=== PATIENT | female | born 1980 | race Caucasian/White ===

== ENCOUNTER 2024-06-14 16:15 | Emergency (ER) | payer BC, SELFPAY ==
--- NOTE | 2024-06-14 16:29 | XR_ITS ---
PROCEDURE INFORMATION: Exam: XR Right Tibia and Fibula Exam date and time: 06/14/2024 5:02 PM Age: 43 years old Clinical indication: Injury or trauma; Fall; Blunt trauma; Thigh or upper leg; Right; Additional info: Fall/ pain x 1 week, bruising on lateral side of tibfib TECHNIQUE: Imaging protocol: Radiologic exam of the right tibia and fibula. Views: 2 views. COMPARISON: CR XR KNEE RT 3V 06/14/2024 5:00 PM FINDINGS: Bones/joints: No acute fracture or malalignment. Soft tissues: Proximal leg soft tissue swelling. IMPRESSION: 1. No acute osseous findings. 2. Proximal leg soft tissue swelling.
--- NOTE | 2024-06-14 16:31 | XR_ITS ---
PROCEDURE INFORMATION: Exam: XR Right Knee Exam date and time: 06/14/2024 5:00 PM Age: 43 years old Clinical indication: Injury or trauma; Fall; Blunt trauma; Knee; Right; Additional info: Fall/pain x 1 week TECHNIQUE: Imaging protocol: Radiologic exam of the right knee. Views: 3 views. COMPARISON: No relevant prior studies available. FINDINGS: Bones/joints: No acute fracture or malalignment. No joint effusion. Soft tissues: Normal. IMPRESSION: No acute osseous findings.
[2024-06-14 16:50] VITALS: BP 162/88; PULSE 82; RESP 20; TEMP 36.7; O2SAT 98; BMI 46.5
--- NOTE | 2024-06-14 17:01 | ED_ITS ---
Discharge Plan Disposition Patient Disposition: Home, Self-Care Condition: Good Prescriptions Prescriptions: No Action lamotrigine 150 mg tablet 150 mg PO DAILY Patient Comments: TAKE 1 TABLET BY MOUTH EVERY NIGHT citalopram 40 mg tablet 40 mg PO DAILY Patient Comments: TAKE 1 TABLET BY MOUTH DAILY trazodone 50 mg tablet 50 - 100 mg PO HSP PRN (Reason: Insomnia) Patient Comments: TAKE 1 TO 2 TABLETS BY MOUTH AT NIGHT NEEDED FOR SLEEP prazosin 1 mg capsule 1 - 4 mg PO HS Patient Comments: TAKE 1 TO 4 CAPSULES BY MOUTH EVERY NIGHT. START WITH 1 MG EVERY NIGHT. MAY INCREASE BY 1 MG EVERY 2 ND-3 RD NIGHT. MAX 4 MG sucralfate 1 gram tablet 1 g PO QID Patient Comments: TAKE 1 TABLET BY MOUTH FOUR TIMES DAILY baclofen 10 mg tablet 10 mg PO TID Patient Comments: TAKE 1 TABLET BY MOUTH THREE TIMES DAILY bupropion HCl 75 mg Tablet 75 mg PO BID Rx Instructions: administer 6 hours apart omeprazole 20 mg capsule,delayed release(DR/EC) 20 mg PO DAILY Patient Comments: TAKE 1 CAPSULE BY MOUTH DAILY Referrals Follow up/Referrals: Siena Vo PA [Primary Care Provider] - See instructions Activity Restrictions/Add. Instructions Additional Instructions/Restrictions: Weight bearing as tolerated rest Ice with cold pack for 20 minutes remove may repeat for comfort every hour Elevate with ankle above your heart as much as possible to help reduce swelling and therefore pain Ibuprofen every 6 hours as needed for pain or inflammation. If needs something more you can take Tylenol every 4 hours as needed as long as her primary care has told he was okayed for you to take both. follow -up immediately if new or worsening symptoms or no noticeable improvement over the next 3-5 days. call ortho if no improvement Clinical Impressions Clinical Impression: Contusion Instructions Patient Instructions: DI for Contusion Discharge ED Provider: Lorena ([facility] [place] HPI General Stated complaint: AO 06/08/241999 injury right leg Mode of Arrival: Ambulatory Source of Information: Patient Limitations: No Limitations Time Seen by Provider: 06/14/24 17:01 Description of Symptoms (Recalled from Triage Doc. by RN): PATIENT C/O INJURY TO RIGHT KNEE AND ANGUIANO AREA AFTER FALLING THIS PAST SUNDAY HEENT Symptoms (Recalled from RN notes): No Resp Symptoms (Recalled from RN notes): No Skin Symptoms (Recalled from RN notes): No MS Symptoms (Recalled from RN notes): Yes Functional Status (Recalled from RN notes): WNL History of Present Illness Provider Complaint: 43 yr old female presents for rt knee and leg pain. pt states last sunday she fell on the concrete floor while doing laundry. pt states leg hurts and its hard to stand for long due to pain Related Data Home Medications Medication Instructions Recorded Confirmed baclofen 10 mg tablet 10 mg PO TID 06/14/24 06/14/24 bupropion HCl 75 mg tablet 75 mg PO BID 06/14/24 06/14/24 citalopram 40 mg tablet 40 mg PO DAILY 06/14/24 06/14/24 lamotrigine 150 mg tablet 150 mg PO DAILY 06/14/24 06/14/24 omeprazole 20 mg capsule,delayed 20 mg PO DAILY 06/14/24 06/14/24 release prazosin 1 mg capsule 1 - 4 mg PO HS 06/14/24 06/14/24 sucralfate 1 gram tablet 1 g PO QID 06/14/24 06/14/24 trazodone 50 mg tablet 50 - 100 mg PO HSP PRN Insomnia 06/14/24 06/14/24 Allergies Allergy/AdvReac Type Severity Reaction Status Date / Time No Known Allergies Allergy Verified 06/14/24 16:59 Worker's Comp Is this a Worker's Comp case?: No [facility] Disclaimer: The information contained in this section may have been updated after the patient was seen, as this information can be updated by other users. 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[employer]) Smoking Status: Smoker, status unknown alcohol intake: never current occupational status: employed Travel in the last 8 weeks: None ROS Obtained: Yes All systems reviewed & no additional complaints except as documented Constitutional Constitutional: Reports system reviewed and no additional complaints, except as documented Eyes Eyes: Reports system reviewed and no additional complaints, except as documented ENT Ears, Nose, Mouth, and Throat: Reports system reviewed and no additional complaints, except as documented Respiratory Respiratory: Reports system reviewed and no additional complaints, except as documented Musculoskeletal Musculoskeletal: Reports system reviewed and no additional complaints, except as documented, Reports as per HPI, Reports arthralgias, Reports joint swelling and Reports limited range of motion Integumentary/Breasts Skin/Breast: Reports system reviewed and no additional complaints, except as documented, Reports as per HPI and Reports other (bruising) Physical Exam General General appearance: alert and in no apparent distress Respiratory Respiratory exam: Present normal lung sounds bilaterally Cardiovascular Cardiovascular exam: Present regular rate and normal rhythm Expanded Lower Extremity Exam Right: Leg image: 2 1. bruise Knee exam: Present normal inspection, full ROM and abrasion Lower leg exam: Present tenderness, swelling and ecchymosis Neurological Exam Neurological exam: Present alert and oriented X3 Skin Skin exam: Present warm and intact Medical Decision Making Medical Records Medical records reviewed: Yes I reviewed the patient's medical records. Tomi Inquiry Pt receiving controlled substance: No Tomi was queried for this patient: No Vital Signs: 06/14/24 16:50 Temperature 98.0 F Temperature Source Oral Pulse Rate [Left Brachial] 82 Respiratory Rate 20 Blood Pressure [Left Arm] 162/88 H Blood Pressure Mean [Left Arm] 112 Blood Pressure Source [Left Arm] Automatic Cuff Blood Pressure Position [Left Arm] Sitting 02 Sat by Pulse Oximetry 98 Oxygen Delivery Method Room Air Orders (Tests/Meds): ORDERS Category Date Time Status Fibula/tibia XR right 2 views [XR tibia fibula RT 2V] Exams 06/14/24 16:29 Ordered Stat Knee XR right 3 views [XR knee RT 3V] Stat Exams 06/14/24 16:31 Ordered
[2024-06-14 18:16] VITALS: BP 162/88; PULSE 82; RESP 20; TEMP 36.7; O2SAT 98
== END 2024-06-14 18:22 | disposition home or self-care (01) ==
PROVIDERS: Emergency Provider Nurse Practitioner Family; PCP Physician Assistant
DX: S80.11XA Contusion of right lower leg, initial encounter (principal); M25.561 Pain in right knee; W19.XXXA Unspecified fall, initial encounter
CPT/HCPCS: 73562; 73590; 99203; 99212; G0463

== ENCOUNTER 2024-11-21 17:56 | Emergency (ER) | payer BC, SELFPAY ==
[2024-11-21 17:56] VITALS: BP 139/69; PULSE 78; RESP 16; TEMP 37; O2SAT 98; BMI 43.5
--- NOTE | 2024-11-21 17:58 | XR_ITS ---
PROCEDURE INFORMATION: Exam: XR Chest Exam date and time: 11/21/2024 5:58 PM Age: 44 years old Clinical indication: Shortness of breath; Additional info: jasbir LOZANO TECHNIQUE: Imaging protocol: Radiologic exam of the chest. Views: 2 views. COMPARISON: No relevant prior studies available. FINDINGS: Lungs: Unremarkable. No consolidation. Pleural spaces: Unremarkable. No pleural effusion. No pneumothorax. Heart/Mediastinum: Unremarkable. No cardiomegaly. Bones/joints: Unremarkable. IMPRESSION: No acute findings.
--- NOTE | 2024-11-21 17:58 | ECG_ITS ---
APPROVED REPORT Exam: Resting ECG HR:78 bpm ECG Measurements Heart Rate 78 AXES FL 136 P -5 QRSd 116 QRS 34 QT 400 T 66 QTc 433 Conclusion SINUS RHYTHM MODERATE INTRAVENTRICULAR CONDUCTION DELAY [110+ ms QRS DURATION] NONSPECIFIC ST & T-WAVE ABNORMALITY No acute STEMI Electronically signed by : FINN OBANDO, 11/22/2024 00:08:56
--- NOTE | 2024-11-21 17:58 | ED_ITS ---
Discharge Plan Prescriptions Prescriptions: No Action lamotrigine 150 mg tablet 150 mg PO DAILY Patient Comments: TAKE 1 TABLET BY MOUTH EVERY NIGHT citalopram 40 mg tablet 40 mg PO DAILY Patient Comments: TAKE 1 TABLET BY MOUTH DAILY trazodone 50 mg tablet 50 - 100 mg PO HSP PRN (Reason: Insomnia) Patient Comments: TAKE 1 TO 2 TABLETS BY MOUTH AT NIGHT NEEDED FOR SLEEP prazosin 1 mg capsule 1 - 4 mg PO HS Patient Comments: TAKE 1 TO 4 CAPSULES BY MOUTH EVERY NIGHT. START WITH 1 MG EVERY NIGHT. MAY INCREASE BY 1 MG EVERY 2 ND-[address] NIGHT. MAX 4 MG sucralfate 1 gram tablet 1 g PO QID Patient Comments: TAKE 1 TABLET BY MOUTH FOUR TIMES DAILY baclofen 10 mg tablet 10 mg PO TID Patient Comments: TAKE 1 TABLET BY MOUTH THREE TIMES DAILY bupropion HCl 75 mg Tablet 75 mg PO BID Rx Instructions: administer 6 hours apart omeprazole 20 mg capsule,delayed release(DR/EC) 20 mg PO DAILY Patient Comments: TAKE 1 CAPSULE BY MOUTH DAILY Print Language Print Language: Wolof Discharge ED Provider: Faby Ybarra General Adult HPI General Stated complaint: N/V Time Seen by Provider: 11/21/24 17:58 Related Data Home Medications ?Medication ?Instructions ?Recorded ?Confirmed baclofen 10 mg tablet 10 mg PO TID 06/14/24 06/14/24 bupropion HCl 75 mg tablet 75 mg PO BID 06/14/24 06/14/24 citalopram 40 mg tablet 40 mg PO DAILY 06/14/24 06/14/24 lamotrigine 150 mg tablet 150 mg PO DAILY 06/14/24 06/14/24 omeprazole 20 mg capsule,delayed 20 mg PO DAILY 06/14/24 06/14/24 release prazosin 1 mg capsule 1 - 4 mg PO HS 06/14/24 06/14/24 sucralfate 1 gram tablet 1 g PO QID 06/14/24 06/14/24 trazodone 50 mg tablet 50 - 100 mg PO HSP PRN Insomnia 06/14/24 06/14/24 Allergies Allergy/AdvReac Type Severity Reaction Status Date / Time No Known Allergies Allergy Verified 06/14/24 16:59 [facility] Disclaimer: The information contained in this section may have been updated after the patient was seen, as this information can be updated by other users. 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
[2024-11-21 18:05] LABS: Basophils % 0.3 % (0.1-2.0); Eosinophils # 0.1 K/mm3 (0.0-0.4); Eosinophils % 0.5 % (0.1-12.0); Hematocrit 39.7 % (37.0-47.0); Hemoglobin 11.7 g/dL (12.2-16.2); Lymphocytes # 0.4 K/mm3 (0.7-4.5); MANUAL DIFFERENTIAL MANUAL DIFFERENTIAL (MANUAL DIFF); Mean Corpuscular HGB Conc 29.5 g/dL (31.8-35.4); Mean Corpuscular Hemoglobin 20.6 pg (27.0-31.2); Mean Corpuscular Volume 69.9 fl (81-99); Mean Platelet Volume 11.5 fl (7.4-10.4); Monocytes # 0.2 K/mm3 (0.1-1.0); Monocytes % 1.4 % (1.7-9.3); Neutrophils # 9.9 K/mm3 (1.8-7.8); Neutrophils % 93.5 % (37.0-80.0); Platelet Count 284 K/mm3 (142-424); Red Blood Count 5.68 M/mm3 (4.20-5.40); White Blood Count 10.6 K/mm3 (4.8-10.8)
--- NOTE | 2024-11-21 18:06 | ED_ITS ---
Discharge Plan Disposition Patient Disposition: Home, Self-Care Condition: Good Prescriptions Prescriptions: New ketorolac 10 mg tablet 10 mg PO Q8H PRN (Reason: pain) 3 Days Qty: 12 0RF metoclopramide HCl [Reglan] 10 mg tablet 10 mg PO Q6H PRN (Reason: nausea and vomiting) Qty: 12 0RF pantoprazole 40 mg tablet,delayed release (DR/EC) 40 mg PO DAILY Qty: 30 0RF No Action lamotrigine 150 mg tablet 150 mg PO DAILY Patient Comments: TAKE 1 TABLET BY MOUTH EVERY NIGHT citalopram 40 mg tablet 40 mg PO DAILY Patient Comments: TAKE 1 TABLET BY MOUTH DAILY trazodone 50 mg tablet 50 - 100 mg PO HSP PRN (Reason: Insomnia) Patient Comments: TAKE 1 TO 2 TABLETS BY MOUTH AT NIGHT NEEDED FOR SLEEP prazosin 1 mg capsule 1 - 4 mg PO HS Patient Comments: TAKE 1 TO 4 CAPSULES BY MOUTH EVERY NIGHT. START WITH 1 MG EVERY NIGHT. MAY INCREASE BY 1 MG EVERY [address] ND[address] NIGHT. MAX 4 MG sucralfate 1 gram tablet 1 g PO QID Patient Comments: TAKE 1 TABLET BY MOUTH FOUR TIMES DAILY baclofen 10 mg tablet 10 mg PO TID Patient Comments: TAKE 1 TABLET BY MOUTH THREE TIMES DAILY bupropion HCl 75 mg Tablet 75 mg PO BID Rx Instructions: administer 6 hours apart omeprazole 20 mg capsule,delayed release(DR/EC) 20 mg PO DAILY Patient Comments: TAKE 1 CAPSULE BY MOUTH DAILY Activity Restrictions/Add. Instructions Additional Instructions/Restrictions: You were evaluated in the emergency department today. Please coal picker your prescriptions at the pharmacy and take them as needed for symptoms. Follow-up closely with your primary care provider. Return to the emergency department for new or worsening symptoms. Clinical Impressions Clinical Impression: Gastroenteritis Stand Alone Forms Stand Alone Forms: Work/School Release Instructions Patient Instructions: DI for Viral Gastroenteritis -- Adult, DI for Nausea -- Adult Print Language Print Language: Sinhala Discharge ED Provider: Faby Ybarra General Adult HPI <Franklin Carrillo ([facility]), TECHNICAL MANAGER - Last Filed: 11/21/24 23:12> General Chief complaint: Nausea/Vomiting/Diarrhea Stated complaint: N/V Time Seen by Provider: 11/21/24 17:58 Mode of Arrival: EMS Source of Information: Patient Limitations: No Limitations Description of Symptoms (Recalled from ER Triage Doc. by RN): pt presents to ED with c/o chest pain, nausea, vomitting. pt reports people in her household has had respiratory illness or stomach bug. symptoms began this morning. pt reports chest pain occurs when she vomits or after. History of Present Illness HPI narrative: 44-year-old female presents for complaints of chest pain with vomiting and pain in the chest after vomiting, nausea, vomiting, right lower quadrant pain and diarrhea that she woke up with this a.m. Patient states other family members have same symptoms. Patient states her abdominal pain is probably result of her IBS. patient states body aches and chills denies fever Related Data Home Medications ?Medication ?Instructions ?Recorded ?Confirmed baclofen 10 mg tablet 10 mg PO TID 06/14/24 06/14/24 bupropion HCl 75 mg tablet 75 mg PO BID 06/14/24 06/14/24 citalopram 40 mg tablet 40 mg PO DAILY 06/14/24 06/14/24 lamotrigine 150 mg tablet 150 mg PO DAILY 06/14/24 06/14/24 omeprazole 20 mg capsule,delayed 20 mg PO DAILY 06/14/24 06/14/24 release prazosin 1 mg capsule 1 - 4 mg PO HS 06/14/24 06/14/24 sucralfate 1 gram tablet 1 g PO QID 06/14/24 06/14/24 trazodone 50 mg tablet 50 - 100 mg PO HSP PRN Insomnia 06/14/24 06/14/24 Previous Rx's ?Medication ?Instructions ?Recorded ketorolac 10 mg tablet 10 mg PO Q8H PRN pain 3 days #12 11/21/24 tabs metoclopramide HCl 10 mg tablet 10 mg PO Q6H PRN nausea and 11/21/24 (Reglan) vomiting #12 tabs pantoprazole 40 mg tablet,delayed 40 mg PO DAILY #30 tabs 11/21/24 release Allergies Allergy/AdvReac Type Severity Reaction Status Date / Time No Known Allergies Allergy Verified 06/14/24 16:59 PFS <Franklin Carrillo ([facility]), TECHNICAL MANAGER - Last Filed: 11/21/24 23:12> PFS Disclaimer: The information contained in this section may have been updated after the patient was seen, as this information can be updated by other users. 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 , TECHNICAL MANAGER) Anemia UTI (urinary tract infection) Depression Anxiety History of gastroesophageal reflux (GERD) Hypertension Surgical History , TECHNICAL MANAGER) History of section History of tubal ligation Social History , TECHNICAL MANAGER) Smoking Status: Never smoker alcohol intake: never current occupational status: employed Travel in the last 8 weeks: None Have you lived/traveled outside [place] in past 30 days?: No Contact w/someone who lives/traveled outside US past 30 days?: No Exposure to someone with infectious disease in past 14 days?: No Do you have a fever (greater than 100.4 F or 38 C)?: No Have you tested positive for COVID-19: No Exposed to someone with COVID-19 in past 14 days?: No Do you have a sore throat?: No Do you have a cough?: No Do you have any weakness?: No Do you have any diarrhea?: Yes Are you experiencing any unusual bleeding?: No Do you have any muscle aches/pain?: No Do you have any abdominal pain?: No Are you experiencing loss of taste or smell?: No <Franklin Brooks[facility] TECHNICAL MANAGER - Last Filed: 11/21/24 23:12> ROS Obtained: Yes Systems reviewed as appropriate & no additional complaints except as documented Physical Exam <[facility]lin [facility] TECHNICAL MANAGER - Last Filed: 11/21/24 23:12> General General appearance: alert and in no apparent distress ENT ENT exam: Present normal exam Respiratory Respiratory exam: Present normal lung sounds bilaterally Cardiovascular Cardiovascular exam: Present regular rate and normal rhythm Abdominal Exam Abdominal exam: Present soft, tenderness and normal bowel sounds Abdominal tenderness: Present RLQ Neurological Exam Neurological exam: Present alert and oriented X3 Skin Skin exam: Present warm and intact Medical Decision Making <Franklin BrooksAL[facility] CLINICLiya, TECHNICAL MANAGER - Last Filed: 11/21/24 23:12> Medical Records Medical records reviewed: Yes I reviewed the patient's medical records. Screening: Per USPSTF and CDC recommendations, given the prevalence of disease in our region, it is our hospital?s policy to screen for HIV and viral Hepatitis for all patients aged 18 and over and those with ongoing risk factors. Tomi Inquiry Pt receiving controlled substance: No Vital Signs: 11/21/24 17:56 11/21/24 22:33 Temperature 98.6 F Temperature Source Oral Pulse Rate 88 Pulse Rate [Left Radial] 78 Respiratory Rate 16 15 Blood Pressure 146/68 H Blood Pressure [Right Arm] 139/69 Blood Pressure Mean [Right Arm] 92 02 Sat by Pulse Oximetry 98 98 Oxygen Delivery Method Room Air Room Air Lab Data Lab results reviewed: Yes I reviewed the patient's lab results. Lab Results 11/21/24 17:55: WBC 10.6, RBC 5.68 H, Hgb 11.7 L, Hct 39.7, MCV 69.9 L, MCH 20.6 L, MCHC 29.5 L, RDW 19.0 H, Plt Count 284, MPV 11.5 H, Neut % (Auto) 93.5 H, L ymph % (Auto) 4.0 L, [place] % (Auto) 1.4 L, Eos % (Auto) 0.5, Baso % (Auto) 0.3, N eut # (Auto) 9.9 H, Lymph # (Auto) 0.4 L, [place] # (Auto) 0.2, Eos # (Auto) 0.1, Baso # (Auto) 0.0, Total Counted 100, Neutrophils % (Manual) 91 H, Band Neutrophils % 1.0, Lymphocytes % (Manual) 2 L, Monocytes % (Manual) 3, Eosinophils % (Manual) 2, Basophils % (Manual) 1.0, Hypersegmented Neuts 1+, Platelet Estimate Normal, Microcytosis 2+, Sodium 135 L, Potassium 4.1, Chloride 101, Carbon Dioxide 24, Anion Gap 14.1, BUN 13, Creatinine 0.70, Estimated Creat Clear 97, Estimated GFR 91, Est GFR ( Amer) 111, Glucose 165 H, Calcium 9.1, Total Bilirubin 0.9, AST 37 H, ALT 31, Alkaline Phosphatase 63, Troponin I < 0.01, Total Protein 7.8, Albumin 4.6, Globulin 3.2, Albumin/Globulin Ratio 1.4, HIV Ag/Ab Combo Qual Negative 11/21/24 20:56: Troponin I < 0.01 11/21/24 17:55 11/21/24 17:55 Orders (Tests/Meds): ED MEDICATIONS Generic Name Dose Route Start Last Admin Trade Name Freq PRN Reason Stop Dose Admin Sodium Chloride 8 ml 11/21/24 19:12 Sodium Chloride 0.9% 10ml Vial IV 12/21/24 19:11 NEEDED PRN dilute pepcid Discontinued Medications Generic Name Dose Route Start Last Admin Trade Name Freq PRN Reason Stop Dose Admin Belladonna Alkaloids 60 ml 11/21/24 23:13 11/21/24 23:19 Belladonna Alkaloids 60 Ml Ml PO 11/21/24 23:14 60 ml ONCE ONE Administration Famotidine 20 mg 11/21/24 19:12 11/21/24 19:47 Famotidine 20mg/2ml Vial IV 11/21/24 19:13 20 mg ONCE ONE Administration Sodium Chloride 500 mls @ 999 mls/hr 11/21/24 17:58 11/21/24 18:20 Sod Chlor 0.9% 1000ml Bag IV 11/21/24 18:28 999 mls/hr .Q31M ONE Administration Sodium Chloride 500 mls @ 999 mls/hr 11/21/24 18:07 11/21/24 18:19 Sod Chlor 0.9% 1000ml Bag IV 11/21/24 18:37 Not Given .Q31M ONE Iopamidol 75 ml 11/21/24 21:11 11/21/24 21:15 Iopamidol-370 (76%);100ml Bottle IV 11/21/24 21:12 75 ml ONCE ONE Administration Ketorolac Tromethamine 30 mg 11/21/24 23:13 11/21/24 23:20 Ketorolac 30mg/Ml Vial IM 11/21/24 23:14 30 mg ONCE ONE Administration Metoclopramide HCl 5 mg 11/21/24 19:12 11/21/24 19:48 Metoclopramide Hcl 10mg/2ml Vial IVP 11/21/24 19:13 5 mg ONCE ONE Administration Ondansetron HCl 4 mg 11/21/24 18:20 11/21/24 18:22 Ondansetron 4mg/2ml Vial IV 11/21/24 18:21 4 mg ONCE ONE Administration Promethazine HCl 25 mg 11/21/24 23:13 11/21/24 23:19 Promethazine 25mg Tablet PO 11/21/24 23:14 25 mg ONCE ONE Administration Sodium Chloride 10 ml 11/21/24 21:11 11/21/24 21:15 Sodium Chloride 0.9% 10ml Syr (Rad Only) IV 11/21/24 21:12 10 ml ONCE ONE Administration ORDERS Category Date Time Status CT abdomen pelvis wo con Stat Cat Scan 11/21/24 19:14 Completed Chest XR 2 view (NOT portable) [XR chest 2V] Stat Exams 11/21/24 17:58 Completed CBC Man Diff [Complete Blood Count Man Dif] Stat Lab 11/21/24 17:55 Completed CMP [Comprehensive Metabolic Panel] Stat Lab 11/21/24 17:55 Completed Diarrhea 23 Panel, PCR Stat Lab 11/21/24 19:14 Ordered HIV Combo Stat Lab 11/21/24 17:55 Completed Hep C Ab with Reflex to RNA Stat Lab 11/21/24 17:55 Ordered Trop I [Troponin I] Stat Lab 11/21/24 17:55 Completed Troponin I Q3H Lab 11/21/24 20:56 Completed Troponin I Q3H Lab 11/22/24 00:00 Ordered Medical Decision Narrative: In summary patient is a 44-year-old female who presents to the emergency department for evaluation of chest pain with vomiting [id number], diarrhea, nausea, body aches, and chills that started this a.m. Patient states other family members in the house have the same symptoms. Patient is hemodynamically stable upon arrival, afebrile. Unremarkable physical exam. Differential diagnosis includes viral gastritis, appendicitis, IBS. Initial workup will be conducted with labs within normal limits, CT abdomen negative for appendicitis, IV fluids, Pepcid. Initial inventions include normal saline, Pepcid,Initial workup reviewed by nc labs, CT,.upon repeat evaluation patient was sitting in chair states abdomen pain was sipping on ice chips and water. Patient had no nausea or vomiting or diarrhea while in the ER. 20:05- pt resting states pepcid helped chest tighness still present but improved <Faby N Tate, DO - Last Filed: 11/21/24 23:26> Vital Signs: 11/21/24 17:56 11/21/24 22:33 Temperature 98.6 F Temperature Source Oral Pulse Rate 88 Pulse Rate [Left Radial] 78 Respiratory Rate 16 15 Blood Pressure 146/68 H Blood Pressure [Right Arm] 139/69 Blood Pressure Mean [Right Arm] 92 02 Sat by Pulse Oximetry 98 98 Oxygen Delivery Method Room Air Room Air Lab Data Lab Results 11/21/24 17:55: WBC 10.6, RBC 5.68 H, Hgb 11.7 L, Hct 39.7, MCV 69.9 L, MCH 20.6 L, MCHC 29.5 L, RDW 19.0 H, Plt Count 284, MPV 11.5 H, Neut % (Auto) 93.5 H, L ymph % (Auto) 4.0 L, [place] % (Auto) 1.4 L, Eos % (Auto) 0.5, Baso % (Auto) 0.3, N eut # (Auto) 9.9 H, Lymph # (Auto) 0.4 L, [place] # (Auto) 0.2, Eos # (Auto) 0.1, Baso # (Auto) 0.0, Total Counted 100, Neutrophils % (Manual) 91 H, Band Neutrophils % 1.0, Lymphocytes % (Manual) 2 L, Monocytes % (Manual) 3, Eosinophils % (Manual) 2, Basophils % (Manual) 1.0, Hypersegmented Neuts 1+, Platelet Estimate Normal, Microcytosis 2+, Sodium 135 L, Potassium 4.1, Chloride 101, Carbon Dioxide 24, Anion Gap 14.1, BUN 13, Creatinine 0.70, Estimated Creat Clear 97, Estimated GFR 91, Est GFR ( Amer) 111, Glucose 165 H, Calcium 9.1, Total Bilirubin 0.9, AST 37 H, ALT 31, Alkaline Phosphatase 63, Troponin I < 0.01, Total Protein 7.8, Albumin 4.6, Globulin 3.2, Albumin/Globulin Ratio 1.4, HIV Ag/Ab Combo Qual Negative 11/21/24 20:56: Troponin I < 0.01 Orders (Tests/Meds): ED MEDICATIONS Generic Name Dose Route Start Last Admin Trade Name Freq PRN Reason Stop Dose Admin Sodium Chloride 8 ml 11/21/24 19:12 Sodium Chloride 0.9% 10ml Vial IV 12/21/24 19:11 NEEDED PRN dilute pepcid Discontinued Medications Generic Name Dose Route Start Last Admin Trade Name Freq PRN Reason Stop Dose Admin Belladonna Alkaloids 60 ml 11/21/24 23:13 11/21/24 23:19 Belladonna Alkaloids 60 Ml Ml PO 11/21/24 23:14 60 ml ONCE ONE Administration Famotidine 20 mg 11/21/24 19:12 11/21/24 19:47 Famotidine 20mg/2ml Vial IV 11/21/24 19:13 20 mg ONCE ONE Administration Sodium Chloride 500 mls @ 999 mls/hr 11/21/24 17:58 11/21/24 18:20 Sod Chlor 0.9% 1000ml Bag IV 11/21/24 18:28 999 mls/hr .Q31M ONE Administration Sodium Chloride 500 mls @ 999 mls/hr 11/21/24 18:07 11/21/24 18:19 Sod Chlor 0.9% 1000ml Bag IV 11/21/24 18:37 Not Given .Q31M ONE Iopamidol 75 ml 11/21/24 21:11 11/21/24 21:15 Iopamidol-370 (76%);100ml Bottle IV 11/21/24 21:12 75 ml ONCE ONE Administration Ketorolac Tromethamine 30 mg 11/21/24 23:13 11/21/24 23:20 Ketorolac 30mg/Ml Vial IM 11/21/24 23:14 30 mg ONCE ONE Administration Metoclopramide HCl 5 mg 11/21/24 19:12 11/21/24 19:48 Metoclopramide Hcl 10mg/2ml Vial IVP 11/21/24 19:13 5 mg ONCE ONE Administration Ondansetron HCl 4 mg 11/21/24 18:20 11/21/24 18:22 Ondansetron 4mg/2ml Vial IV 11/21/24 18:21 4 mg ONCE ONE Administration Promethazine HCl 25 mg 11/21/24 23:13 11/21/24 23:19 Promethazine 25mg Tablet PO 11/21/24 23:14 25 mg ONCE ONE Administration Sodium Chloride 10 ml 11/21/24 21:11 11/21/24 21:15 Sodium Chloride 0.9% 10ml Syr (Rad Only) IV 11/21/24 21:12 10 ml ONCE ONE Administration ORDERS Category Date Time Status CT abdomen pelvis wo con Stat Cat Scan 11/21/24 19:14 Completed Chest XR 2 view (NOT portable) [XR chest 2V] Stat Exams 11/21/24 17:58 Completed CBC Man Diff [Complete Blood Count Man Dif] Stat Lab 11/21/24 17:55 Completed CMP [Comprehensive Metabolic Panel] Stat Lab 11/21/24 17:55 Completed Diarrhea 23 Panel, PCR Stat Lab 11/21/24 19:14 Ordered HIV Combo Stat Lab 11/21/24 17:55 Completed Hep C Ab with Reflex to RNA Stat Lab 11/21/24 17:55 Ordered Trop I [Troponin I] Stat Lab 11/21/24 17:55 Completed Troponin I Q3H Lab 11/21/24 20:56 Completed Troponin I Q3H Lab 11/22/24 00:00 Ordered ECG Data Tracing #1: I reviewed this ECG and interpreted as documented below: Normal sinus rhythm with a ventricular rate of 78 bpm. Moderate intraventricular conduction delay. No acute STEMI. ECG initial impression date: 11/21/24 ECG initial impression time: 17:58 Medical Decision Narrative: In summary patient is a 44-year-old female who presents to the emergency department for evaluation of chest pain with vomiting [id number], diarrhea, nausea, body aches, and chills that started this a.m. Patient states other family members in the house have the same symptoms. Patient is hemodynamically stable upon arrival, afebrile. Unremarkable physical exam. Differential diagnosis includes viral gastritis, appendicitis, IBS. Initial workup will be conducted with labs within normal limits, CT abdomen negative for appendicitis, IV fluids, Pepcid. Initial inventions include normal saline, Pepcid,Initial workup reviewed by me labs, CT,.upon repeat evaluation patient was sitting in chair states abdomen pain was sipping on ice chips and water. Patient had no nausea or vomiting or diarrhea while in the ER. 20:05- pt resting states pepcid helped chest tighness still present but improved I was consulted by the MISTI, and we discussed the complexity of the problems being addressed. I approved the treatment and management plan for this patient's care in the emergency department, thus performing a substantive portion of the medical decision making. On my assessment of the patient, she states she is feeling very nauseated and upset stomach but is requesting something to drink. Labs are reassuring with no significant leukocytosis, significant abnormalities in chemistry. She continued to have significant symptoms despite administration of multiple medications, so CT scan was obtained. CT scan was reassuring without acute pathology noted such as appendicitis. Afterward, patient was given p.o. trial as well as multiple other medications including IM Toradol, oral Phenergan, GI cocktail. Ultimately, I feel that she is appropriate for discharge home with instructions for supportive management of likely gastroenteritis. She is given prescriptions for pantoprazole, Reglan, Toradol. Strict return precautions were given and she was discharged after all questions were answered. Faby Ybarra, DO Critical Care <Franklin Carrillo ([facility]), TECHNICAL MANAGER - Last Filed: 11/21/24 23:12> Critical Care Time Critical Care Time: No
[2024-11-21 18:08] LABS: Albumin Level 4.6 g/dl (3.5-5.0); Chloride 101 mmol/L (98-107); Potassium 4.1 mmoL/L (3.5-5.1); Sodium 135 mmol/L (136-145)
[2024-11-21 18:10] LABS: Blood Urea Nitrogen 13 mg/dl (7-17); Creatinine Clearance Estimated 97 mL/min (50-200); Estimated Glomerular Filt Rate 91 ml/min (>60); GFR (African American) 111 ML/MIN (>60)
[2024-11-21 18:11] LABS: Alanine Aminotransferase 31 U/L (12-78); Albumin/Globulin Ratio 1.4 (1.1-1.8); Alkaline Phosphatase 63 U/L (38-126); Anion Gap 14.1 mEq/L (5-15); Aspartate Amino Transferase 37 U/L (14-36); Bilirubin,Total 0.9 mg/dl (0.2-1.3); Calcium 9.1 mg/dl (8.4-10.2); Carbon Dioxide 24 mmol/L (22.0-30.0); Globulin 3.2 g/dL (1.3-3.2); Glucose 165 mg/dl (74-100); Total Protein,Serum 7.8 g/dl (6.3-8.2)
[2024-11-21] MEDS: 0.9 % SODIUM CHLORIDE 1000ML 500 ML 999 ML IV (18:20)
[2024-11-21] MEDS: ONDANSETRON 4MG/2ML VIAL 4 MG IV (18:22)
--- NOTE | 2024-11-21 18:45 | PC.NURSE ---
PT PROVIDED WARM BLANKET
[2024-11-21 18:51] LABS: Eosinophils % 2 % (0-3); Lymphocytes % 2 % (10-50); Monocytes % 3 % (2-9); Neutrophils % 91 % (42-76); Total Cells Counted 100
[2024-11-21 18:52] LABS: Hypersegmented Neutrophils 1+; Microcytosis 2+; Platelet Estimate Normal
--- NOTE | 2024-11-21 19:14 | CT_ITS ---
PROCEDURE INFORMATION: Exam: CT Abdomen And Pelvis Without Contrast Exam date and time: 11/21/2024 9:12 PM Age: 44 years old Clinical indication: Other: Rlq ttp, n/v/d TECHNIQUE: Imaging protocol: Computed tomography of the abdomen and pelvis without contrast. Radiation optimization: All CT scans at this facility use at least one of these dose optimization techniques: automated exposure control; mA and/or kV adjustment per patient size (includes targeted exams where dose is matched to clinical indication); or iterative reconstruction. COMPARISON: CR XR CHEST 2V 11/21/2024 5:58 PM FINDINGS: Tubes, catheters and devices: None noted. Lungs: Lung bases appear clear. Heart: No significant coronary calcifications. No cardiomegaly. No significant pericardial effusion. Liver: Normal. No mass. Gallbladder and biliary ducts: Normal. No calcified stones. No ductal dilation. Pancreas: Normal. No ductal dilation. Spleen: Normal. No splenomegaly. Adrenal glands: Normal. No mass. Kidneys and ureters: Normal. No hydronephrosis. Stomach and bowel: Unremarkable. No obstruction. No mucosal thickening. Appendix: Appendix is well visualized. No evidence of appendicitis. Intraperitoneal space: Unremarkable. No free air. No significant fluid collection. Retroperitoneal space: No significant retroperitoneal inflammatory changes are noted. Vasculature: Unremarkable. No abdominal aortic aneurysm. Lymph nodes: Unremarkable. No enlarged lymph nodes. Urinary bladder: Unremarkable as visualized. Reproductive: Unremarkable as visualized. Bones/joints: Unremarkable. No acute fracture. Soft tissues: Unremarkable. IMPRESSION: 1. No acute findings. 2. No CT evidence of appendicitis.
[2024-11-21] MEDS: FAMOTIDINE 20MG/2ML VIAL 20 MG IV (19:47)
[2024-11-21] MEDS: METOCLOPRAMIDE HCL 10MG/2ML VIAL 5 MG IVP (19:48)
[2024-11-21 19:57] LABS: Troponin I < 0.01 ng/ml (0.00-0.034)
[2024-11-21 20:02] LABS: HIV Combo NEGATIVE (Negative)
[2024-11-21] MEDS: IOPAMIDOL-370 (76%);100ML BOTTLE 75 ML IV (21:15)
[2024-11-21] MEDS: SODIUM CHLORIDE 0.9% 10ML SYR (RAD ONLY) 10 ML IV (21:15)
[2024-11-21 22:11] LABS: Troponin I < 0.01 ng/ml (0.00-0.034)
[2024-11-21 22:33] VITALS: BP 146/68; PULSE 88; RESP 15; O2SAT 98
[2024-11-21] MEDS: BELLADONNA ALKALOIDS 60 ML ML PO (23:19)
[2024-11-21] MEDS: PROMETHAZINE 25MG TABLET 25 MG PO (23:19)
[2024-11-21] MEDS: KETOROLAC 30MG/ML VIAL 30 MG IM (23:20)
[2024-11-21 23:39] VITALS: BP 146/68; PULSE 88; RESP 20; TEMP 37.1; O2SAT 98
== END 2024-11-21 23:50 | disposition home or self-care (01) ==
PROVIDERS: Nurse Practitioner Family; Emergency Provider Emergency Medicine; PCP Nurse Practitioner Family
DX: K52.9 Noninfective gastroenteritis and colitis, unspecified (principal); R07.9 Chest pain, unspecified; R11.2 Nausea with vomiting, unspecified; R10.31 Right lower quadrant pain
CPT/HCPCS: 71046; 74176; 80053; 84484; 85007; 85014; 85018; 85048; 85049; 87389; 93005; 96361; 96372; 96374; 96375; 99285; J1885; J2405; J2765; J7030; Q9967; S0028

== ENCOUNTER 2025-08-22 16:21 | Emergency (ER) | payer BC, SELFPAY ==
--- OUTSIDE RECORDS SUMMARY | 2025-08-22 16:29 | XMS_ITS | Data Portability ---
Author Organization [facility] & JOSEPH Lozano ADMIN Address [address] [place] [id number] Assessment Encounter Date Assessment Date Assessment LastModified by Organization Details LastModified Time 09/20/2023 09/20/2023 42-year-old female with chronic abdominal bloating, alternating constipation and diarrhea, nausea, and heartburn. She has had mild improvement with recent use of Miralax. 1) Alternating constipation and diarrhea: Possibly IBS. Due to chronicity and persistence of symptoms, will schedule EGD and colonoscopy for further evaluation. -Start Linzess 145 mcg p.o. daily for treatment of constipation. -She will follow-up after the scopes for further recommendations . 2) Heartburn: Continue Omeprazole and Sucralfate for now. EGD scheduled for evaluation of nausea and heartburn. Not available 09/20/2023 11:15:30 Plan of Treatment Reminders Order Date Submit Date Provider Last Modified By Organization Details Last Modified Time Details Appointments None recorded. Lab None recorded. Referral None recorded. Procedures None recorded. Surgeries None recorded. Imaging None recorded. Medication Orders Linzess 145 mcg capsule 023 023 [id number], [address] [address] [place] Del[place], [id number], 3 11:12:33 Patient TargetsNo targets recorded. Patient InstructionsNo instructions recorded. Reason for Referral None Reported. Problems Name Problem SNOMED Code Status Onset Date Resolution Date Notes Provider Name and Address Organization Details Recorded Time Chronic idiopathic constipation 42073135 Active 2022 Ronnie Wynn PA-C [address] , [place], [address] , [facility] & [place] 3 11:07:58 Abdominal bloating 023139432 Active 2022 Ronnie Wynn PA-C [address], [place], [address] , [facility] [place] 3 11:12:43 Heartburn 17774775 Active 2022 Ronnie Wynn PA-C [address], [place], [place], [address] [place] [address] , [facility] [place] 3 11:12:47 Nausea 139419664 Active 2022 Ronnie Wynn PA-C [address], [place] [address] , [facility] & [place] 3 11:12:50 Constipation alternates with diarrhea 331321817 Active 2022 Ronnie Wynn PA-C [address], [place] [address] , [facility] & [place] 3 11:19:17 Problem Notes None recorded. Medical Equipment None Reported. Medications Name Sig Start Date Stop Date Status Note LastModified by Organization Details LastModified Time Miralax 17 gram oral powder packet Take 5 packets 3 times a day by oral route as directed for 1 day. 2022 active Not Available Not Available Not Avai lable lamotrigine 150 mg tablet TAKE 1 TABLET BY MOUTH EVERY NIGHT active Not Available Not Available No t Available citalopram 40 mg tablet TAKE 1 TABLET BY MOUTH DAILY active Not Available Not Available No t Available azithromycin 250 mg tablet TAKE 2 TABLETS BY MOUTH FOR 1 DAY THEN TAKE 1 TABLET BY MOUTH DAILY FOR 4 DAYS active Not Available Not Available No t Available ibuprofen 800 mg tablet TAKE 1 TABLET BY MOUTH EVERY 6 HOURS NEEDED FOR MILD PAIN OR MODERATE PAIN active Not Available Not Available No t Available sucralfate 1 gram tablet TAKE 1 TABLET BY MOUTH FOUR TIMES DAILY active Not Available Not Available No t Available hydroxyzine HCl 50 mg tablet TAKE 1 TABLET BY MOUTH AT NIGHT NEEDED FOR ANXIETY OR INSOMNIA active Not Available Not Available No t Available lamotrigine 25 mg tablet TAKE 1 TABLET BY MOUTH EVERY NIGHT FOR 14 DAYS THEN TAKE 2 TABLETS BY MOUTH EVERY NIGHT FOR 14 DAYS active Not Available Not Available No t Available bupropion HCl 75 mg tablet TAKE 1 TABLET BY MOUTH TWICE DAILY active Not Available Not Available No t Available omeprazole 20 mg capsule,delaye d release TAKE 1 CAPSULE BY MOUTH DAILY active Not Available Not Available No t Available ondansetron 4 mg disintegrating tablet DISSOLVE 1 TABLET ON THE TONGUE EVERY 6 TO 8 HOURS NEEDED active Not Available Not Available No t Available lamotrigine 100 mg tablet TAKE 1 TABLET BY MOUTH EVERY NIGHT active Not Available Not Available No t Available nitrofurantoin monohydrate/ma crocrystals 100 mg capsule TAKE 1 CAPSULE BY MOUTH EVERY 12 HOURS FOR 7 DAYS active Not Available Not Available No t Available Linzess 145 mcg capsule Take 1 tablet by mouth once daily on an empty stomach, 30 minutes before food or coffee, 90 days 2022 active Not Available Not Available Not Avai lable Vitals Date Recorded Body height Body mass index (BMI) Body weight Body temperature Heart rate Heart rate Oxygen saturation Oxygen saturation in Arterial blood by Pulse oximetry Systolic And Diastolic Provider Name and Address Organization Details Last Updated DateTime 3 167.64 cm 50 kg/m2 367767. 56 g 98.1 [degF] 102 /min 94 /min 99 % 99 % 175/84 mm[Hg] [facility] [place] 10:44:07 Social History Question Answer Notes LastModified by [employer] Details LastModified Time Tobacco Smoking Status Never Smoker [facility] 09/20/2023 10:44:48 What Is Your Level Of Caffeine Consumption? Occasional [email or web address] Information not available 09/20/2023 Sex: Unknown Functional Status Question Answer Note LastModified by [employer] Details LastModified Time Do you use any illicit or recreational drugs? No [email or web address] Information not available 09/20/2023 Do you or have you ever used any other forms of tobacco or nicotine? No [email or web address] Information not available 09/20/2023 What is your level of alcohol consumption? None [email or web address] Information not available 09/20/2023 Mental Status None recorded. Family History Nothing Reported. 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 No medical history recorded. Gynecological HistoryNo gynecological history recorded. Obstetrics History GPAL:G 0 P 0 0 0 0 Past Encounters Encounter ID Performer Location Encounter Start Date Encounter Closed Date Diagnosis/Indication Diagnosis SNOMED-CT Code Diagnosis ICD10 Code Diagnosis IMO Codes Diagnosis Note [id number] Ronnie Wynn PA-C [facility] [address] [facility] [address] [place] [address] 09/20/2023 10:30:16 09/20/2023 11:26:57 Chronic idiopathic constipation 29578522 K59.04 Constipati on alternates with diarrhea 728492808 K59.04 Abdominal bloating 14595 9008 R14.0 Heartburn 15335198 R12 Nausea 131815981 R11.0 Health Concerns Section Related Observation LastModified by Organization Detai ls LastModified Time None Recorded Concern Status LastModified by Organization Details LastModified Time None Recorded Advance Directives Directive None Recorded Payers Insurance Date Sequence Insurance Name Policy Number Policy Goodwin Covered Member ID Goodwin Member ID Guarantor Name 09/20/2023 SLIDING FEE SCHEDULE - DISCOUNT Katarina Grady 12/17/2023 1 BCLEIF-MD: [employer] [employer] [facility] [id number] Katarina Grady [id number] Katarina Grady Notes Date Note Type Note Provider Name and Address Organization Details Recorded Time 09/20/2023 text/html Ms. Grady is a very pleasant 42-year-old female who was referred by Siena Vo PA-C for evaluation of abdominal pain, constipation, diarrhea, and bloating. Her symptoms have been present since she was a teenager. She reports undergoing colonoscopy at age 19. She said she had some polyps at that time that were not concerning . She notes diarrhea seems to be more apparent than constipation, but she notes feelings of incomplete defecation after BMs. Miralax has been mildly helpful for this. She also reports frequent heartburn for which she is taking Omeprazole. Sucralfate was added 1 month ago by her PCP, which she states has been helpful. She denies dysphagia, vomiting, hematemesis, melena, or hematochezia. Ronnie Wynn PA-C [address] [facility], [place], [address], [facility] - [facility] 09/20/2023 11:19:26 OBGyn Episode No OBEpisode recorded.
--- OUTSIDE RECORDS SUMMARY | 2025-08-22 16:29 | XMS_ITS | Encounter Summary ---
[facility] Address [address] [place] [address] Care Team Providers Care Core Measures Abstractor Name Role Phone Siena Vo Primary Care Provider [phone] Reason for Visit * Reason Comments Med Refill Encounter Details Date Type Department Care Team (Late st Contact Info) Description 01/19/2025 Refill [facility] [address] [facility] [place] [address] Siena Vo PA [address] [place] [address] Social History Tobacco Use Types Packs/Day Years Used Date Smoking Tobacco: Former Cigarettes 0.5 13 0 11/26/2000 - 11/26/2013 Passive Smoke Exposure: Never Smokeless Tobacco: Never Comments:use E Cig currently Alcohol Use Standard Drinks/Week Comments No 0 (1 standard drink = 0.6 oz pur e alcohol) Overall Financial Resource Strain (CARDIA) Answe r Date Recorded How hard is it for you to pa y for the very basics like food, housing, medical care, and heating? Not hard at all 09/27/2020 PHQ-2 Answer Date Recorded Retired PHQ-9: Brief Depression Severity Measure Score 8 06/01/2023 Exercise Vital Sign Answer Date Recorde d On average, how many days pe r week do you engage in moderate to strenuous exercise (like a brisk walk)? 0 days 09/27/2020 On average, how many minutes do you engage in exercise at this level? 0 min 09/27/2020 Hunger Vital Sign Answer Date Recorded Within the past 12 months, y ou worried that your food would run out before you got the money to buy more. Never true 09/27/20 20 Within the past 12 months, t he food you bought just didn't last and you didn't have money to get more. Never true 09/27/2020 PRAPARE - Transportation Answer Date Re corded In the past 12 months, has l ack of transportation kept you from medical appointments or from getting medications? Yes 12/2019 In the past 12 months, has l ack of transportation kept you from meetings, work, or from getting things needed for daily living? Yes 09/27/2020 [place] Depression Scale Answer Date Recorded [place] Depression Scale Total 8 05/03/2021 The thought of harming myself has occurred to me . Never 05/03/2021 Abuse Screen Answer Date Recorded Unsafe at Home or Work/School Not on file Feels Threatened by Someone? Not on file 07/2023 Does Anyone Keep You from Co ntacting Others or Doint Things Outside the Home? Not on file 09/03/2023 Physical Sign of Abuse Present Not on file 1 Housing Stability Answer Date Recorded Current Living Arrangements Not on file 07/2023 Potentially Unsafe Housing Conditions Not on brenton e 09/03/2023 Family and Community Support Answer Issa e Recorded Help with Day-to-Day Activities Not on file 09/03/2023 Lonely or Isolated Not on file 09/03/2023 Employment Answer Date Recorded Do you want help finding or keeping work or a maral b? Not on file 09/03/2023 Disabilities Answer Date Recorded Concentrating, Remembering, or Making Decisions Difficulty Not on file 09/03/2023 Doing Errands Independently Difficulty Not on fi le 09/03/2023 Education Answer Date Recorded Help with school or training? Not on file Preferred Language Not on file 09/03/2023 PHQ-2 Answer Date Recorded Retired PHQ-9: Brief Depression Severity Measure Score 0 12/27/2023 Education Answer Date Recorded What is the highest level of school you have completed or the highest degree you have received? High school graduate 04/18/2021 Comments Unknown Sex and Gender Information Value Date Recorded Sex Assigned at Female 04/28/2023 12:52 PM EDT Legal Sex Female 12:03 PM EDT Gender Identity Female 04/28/2023 12:52 PM EDT Sexual Orientation Straight 04/28/2023 12 :52 PM EDT documented as of this encounter Miscellaneous Notes * Telephone Encounter - Margarte Camara RegSched Rep - 01/23/2025 9:39 AM EST 3RD ATT LEFT VOICEMAIL TO SCHEDULE APPOINTMENT HUB TO RELAY * Telephone Encounter - Margaret Camara RegSched Rep - 01/21/2025 9:10 AM EST 2ND ATT LEFT VOICEMAIL TO SCHEDULE APPOINTMENT HUB TO RELAY * Telephone Encounter - Margaret Camara RegSched Rep - 01/19/2025 12:04 PM EST LEFT VOICEMAIL AND SENT MY CHART TO SCHEDULE APPOINTMENT HUB TO RELAY THEN SEND TO CLINICAL POOL documented in this encounter Plan of Treatment Not on file documented as of this encounter Visit Diagnoses Not on filedocumented in this encounter Care Teams Core Measures Abstractor Relationship Specialty Start Date End Date [place] [address] PCP - General Physician Security And Compliance Project Manager 07/05/21 documented as of this encounter
--- OUTSIDE RECORDS SUMMARY | 2025-08-22 16:29 | XMS_ITS | Clinical Summary ---
[facility] Address [address] [place] [address] Care Team Providers Care Skilled Labor Name Role Phone Siena Vo Primary Care Provider [phone] Allergies No known active allergies Medications * This document contains information received from the source organization and may not represent a complete record from that organization. polyethylene glycol (MiraLax) 17 g packet Take 17 g by mouth 3 (Three) Times a Day As Needed. 3 Active Linzess 145 MCG capsule capsule Take 1 capsule by mouth Every Morning Before Breakfast. 3 Active omeprazole (priLOSEC) 20 MG capsuleIndicatio ns:Gastroesophag eal reflux disease, unspecified whether esophagitis present Take 1 capsule by mouth Daily. 90 capsule 1 4 Active sucralfate (Carafate) 1 g tabletIndication s:Gastroesophage al reflux disease, unspecified whether esophagitis present Take 1 tablet by mouth 4 (Four) Times a Day. 60 tablet 5 4 Active predniSONE (DELTASONE) 10 MG (21) dose packIndications: Chronic midline low back pain with right-sided sciatica,Cubital tunnel syndrome, right Use as directed on package 21 each 4 Active hydrOXYzine (ATARAX) 50 MG tabletIndication s:Primary insomnia TAKE 1 TABLET BY MOUTH AT NIGHT NEEDED FOR ANXIETY OR INSOMNIA 90 tablet 3 4 Active baclofen (LIORESAL) 10 MG tabletIndication s:Chronic midline low back pain with right-sided sciatica,Cubital tunnel syndrome, right TAKE 1 TABLET BY MOUTH THREE TIMES DAILY 30 tablet 1 4 Active prazosin (MINIPRESS) 1 MG capsuleIndicatio ns:Nightmares TAKE 1 TO 4 CAPSULES BY MOUTH EVERY NIGHT. START WITH 1 MG EVERY NIGHT. MAY INCREASE BY 1 MG EVERY [address] ND-[address] NIGHT. MAX 4 MG 90 capsule 1 4 Active traZODone (DESYREL) 50 MG tabletIndication s:Insomnia due to other mental disorder TAKE 1 TO 2 TABLETS BY MOUTH AT NIGHT NEEDED FOR SLEEP 60 tablet 1 4 Active buPROPion (WELLBUTRIN) 75 MG tabletIndication s:Depression with anxiety TAKE 1 TABLET BY MOUTH TWICE DAILY 180 tablet 3 4 Active citalopram (CeleXA) 40 MG tablet TAKE 1 TABLET BY MOUTH DAILY 90 tablet 4 Active lamoTRIgine (LaMICtal) 150 MG tabletIndication s:Post traumatic stress disorder (PTSD) TAKE 1 TABLET BY MOUTH EVERY NIGHT 90 tablet 5 05/26/20 26 Active Active Problems Problem Noted Date Diagnosed Date Post traumatic stress disorder (PTSD) 04/06/2023 Essential hypertension 07/05/2021 Elevated blood sugar 07/05/2021 Morbidly obese 12/20/2020 Chronic hypertension in 09/27/2020 Resolved Problems Problem Noted Date Diagnosed Date Resolved Date Gestational diabetes mellitu s (GDM) in third trimester controlled on oral hypoglycemic drug 04/04/2021 04/22/2021 04/04/2021 04/22/2021 Diet controlled gestational diabetes mellitus (GDM) in third trimester 03/21/2021 04/22/2021 Multigravida of advanced mat ernal age in first trimester 09/27/2020 04/22/2021 Immunizations Immunization Administration Dates Next Due COVID-19 (MODERNA) 1st,2nd,3rd Dose Monovalent 1 ,08/26/2021 Rho (D) Immune Globulin 04/20/2021,02/14/2021 Tdap 03/28/2021 Family History 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 Relation Name Comments Diabetes Brother Diabetes Father Obesity Father Cancer Maternal Grandfather Diabetes Maternal Grandfather Heart disease Maternal Grandfather Lung disease Maternal Grandfather Obesity Maternal Grandfather Stroke Maternal Grandfather Cancer Maternal Grandmother Diabetes Maternal Grandmother Heart disease Maternal Grandmother Lung disease Maternal Grandmother Obesity Maternal Grandmother Stroke Maternal Grandmother Diabetes Mother Heart disease Mother Cancer Other Diabetes Other Heart disease Other Lung disease Other Obesity Other Stroke Other Cancer Paternal Grandfather Diabetes Paternal Grandfather Heart disease Paternal Grandfather Lung disease Paternal Grandfather Obesity Paternal Grandfather Stroke Paternal Grandfather Cancer Paternal Grandmother Diabetes Paternal Grandmother Heart disease Paternal Grandmother Lung disease Paternal Grandmother Obesity Paternal Grandmother Stroke Paternal Grandmother Diabetes Sister Breast cancer Neg Hx Endometrial cancer Neg Hx Ovarian cancer Neg Hx Relation Name Status Comments Brother Father Maternal Grandfather Maternal Grandmother Mother Other Paternal Grandfather Paternal Grandmother Sister Social History Tobacco Use Types Packs/Day Years Used Date Smoking Tobacco: Former Cigarettes 0.5 13 0 11/26/2000 - 11/26/2013 Passive Smoke Exposure: Never Smokeless Tobacco: Never Tobacco Cessation:Counseling Given: Not Answered Comments:use E Cig currently Alcohol Use Standard [...] things needed for daily living? Yes 09/27/2020 Rose Depression Scale Answer Date Recorded Rose Depression Scale Total 8 05/03/2021 The thought [...] Orientation Straight 04/28/2023 12 :52 PM EDT Last Filed Vital Signs Vital Sign Reading Time Taken Comments Blood Pressure 156/91 01/16/2024 12:38 PM EST Pulse 86 01/16/2024 12:38 PM EST Temperature 36.7 C (98 F) 12/27/2023 2:30 PM EST Respiratory Rate 18 12/27/2023 2:30 PM EST Oxygen Saturation 99% 12/27/2023 2:30 PM EST Inhaled Oxygen Concentration - - Weight 140 kg (309 lb) 01/16/2024 12:38 PM EST Height 167.6 cm (5' 6 ) 01/16/2024 12:38 PM EST Body Mass Index 49.87 01/16/2024 12:38 PM EST Plan of Treatment Health Maintenance Due Date Last Done Comments Annual Gynecologic Pelvic an d Breast Exam 1981 ANNUAL PHYSICAL 10/08/2019 MAMMOGRAM 2021 PAP SMEAR 09/30/2023 09/30/2020 INFLUENZA VACCINE 06/26/2025 TDAP/TD VACCINES (2 - Td or Tdap) 03/28/2031 021 HEPATITIS C SCREENING Completed 09/27/2020 Pneumococcal Vaccine 0-49 Aged Out No longer eligible based on patient's age to complete this topic Medical Devices Implanted Type Area Photographic Process Attendant Device Identifier Shelf Expiration Date Model / Serial / Lot Hemost Abs Surgicel Pwdr 3gm - [id number] Implanted:Qty: 1 on 04/19/2021 by Moy Graff MD at [facility] Implant [employer] J [id number] / / [id number] Procedures Procedure Name Priority Date/Time Associated Diagnosis Comments PAP IG, CT-NG, RFX HPV ASCU ([facility]) Routine 09/30/2020 3:07 PM EST 8 weeks gestation of OBSTETRIC PANEL Routine 09/27/2020 5:33 PM EST 8 weeks gestation of Chronic hypertension in Multigravida of advanced maternal age in first trimester from Last 3 Months or Most Recently Relevant to Health Maintenance Results * Pap IG, Ct-Ng, Rfx HPV ASCU (09/30/2020 3:07 PM EST) ThinPrep Vial Specimen from cervix or vagina / Unknown us Moy Graff MD PATHOLOGY/CYTOLOGY ORDER MARIALUISA Final Result [facility] ([facility] [address] [place] [address], * (ABNORMAL) Obstetric Panel (09/27/2020 5:33 PM EST) Hepatitis B Surface Ag Negative Negative [facility] Hep C Virus Ab <0.1 0.0 - 0.9 s/co ratio [facility] Comment: Negative: < 0.8 Indeterminate: 0.8 - 0.9 Positive: > 0.9 The CDC recommends that a positive HCV antibody result be followed up with a HCV Nucleic Acid Amplification test (238040). RPR Non Reactive Non Reactive [facility] Rubella Antibodies, IgG 18.70 Immune >0.99 index [facility] Comment: Non-immune <0.90 Equivocal 0.90 - 0.99 Immune >0.99 ABO Type O [facility] Rh Factor Negative [facility] Comment: Please note: Prior records for this patient's ABO / Rh type are not available for additional verification. Antibody Screen Negative Negative [facility] WBC 9.2 3.4 - 10.8 x10E3/uL [facility] RBC 4.00 3.77 - 5.28 x10E6/uL [facility] Hemoglobin 9.3(L) 11.1 - 15.9 g/dL [facility] Hematocrit 29.5(L) 34.0 - 46.6 % [facility] MCV 74(L) 79 - 97 fL [facility] MCH 23.3(L) 26.6 - 33.0 pg [facility] MCHC 31.5 31.5 - 35.7 g/dL [facility] RDW 15.5(H) 11.7 - 15.4 % [facility] Platelets 361 150 - 450 x10E3/uL [facility] Neutrophil Rel % 77 Not Estab. % [facility] Lymphocyte Rel % 16 Not Estab. % [facility] Monocyte Rel % 4 Not Estab. % [facility] Eosinophil Rel % 2 Not Estab. % [facility] Basophil Rel % 0 Not Estab. % [facility] Neutrophils Absolute 7.2(H) 1.4 - 7.0 x10E3/uL [facility] Lymphocytes Absolute 1.5 0.7 - 3.1 x10E3/uL [facility] Monocytes Absolute 0.4 0.1 - 0.9 x10E3/uL [facility] Eosinophils Absolute 0.2 0.0 - 0.4 x10E3/uL [facility] Basophils Absolute 0.0 0.0 - 0.2 x10E3/uL [facility] Immature Granulocyte Rel % 1 Not Estab. % [facility] Immature Grans Absolute 0.1 0.0 - 0.1 x10E3/uL [facility] Blood 09/27/2020 5:33 PM EST 2020 Narrative [facility] ([facility]) - 09/29/2020 6:09 AM EST Performed at: - [facility] [address] [place], [place] [id number] Physical Director: John De La Cruz PhD, Phone: [phone] Patient Fasting: N Moy Graff MD LAB BLOOD ORDERABLES Fin al Result [facility] ([facility] [address] [place] [address], [facility] [address] [place] [address], from Last 3 Months or Most Recently Relevant to Health Maintenance [facility] Subscriber Plan / Payer (Ef fective 2023-Present) Name:Katarina Grady Relation to Subscriber:Self Name:Katarina Grady Payer ID:[id number] (NAIC) Type:Not on file Address: [facility] [id number] [place] [id number] Advance Directives * CPR (Attempt to Resuscitate) (Latest Code Status on File) Date Activated Date Inactivated Comments 04/19/2021 11:40 PM 04/22/2021 2:42 PM Question Answer Comments Code Status (Patient has no pulse and is not breathing): CPR (Attempt to Resuscitate) Medical Interventions (Patie nt has pulse or is breathing): Full * CPR (Attempt to Resuscitate) Date Activated Date Inactivated Comments 04/19/2021 8:00 PM 04/19/2021 11:40 PM Question Answer Comments Code Status (Patient has no pulse and is not breathing): CPR (Attempt to Resuscitate) Medical Interventions (Patie nt has pulse or is breathing): Full Level Of Support Discussed With: Patient * CPR (Attempt to Resuscitate) Date Activated Date Inactivated Comments 04/18/2021 10:03 PM 04/19/2021 8:00 PM Question Answer Comments Code Status (Patient has no pulse and is not breathing): CPR (Attempt to Resuscitate) Medical Interventions (Patie nt has pulse or is breathing): Full Care Teams Skilled Labor Relationship Specialty Start Date End Date Siena Vo PA [address] [place] [address] PCP - General Physician Manager Ccu 07/05/21
--- OUTSIDE RECORDS SUMMARY | 2025-08-22 16:29 | XMS_ITS | Encounter Summary ---
[facility] [address] [place] [address] Care Team Providers Care Wharfmaster Name Role Phone Siena Vo Primary Care Provider [phone] Reason for Visit * Reason Comments Med Refill Encounter Details Date Type Department Care Team (Late st Contact Info) Description 05/02/2025 Refill [facility] [address] [place] [address] Siena Vo PA [address] [place] [address] Primary insomnia Social History Tobacco Use Types Packs/Day Years [...] things needed for daily living? Yes 09/27/2020 [place] Depression Scale Answer Date Recorded [place] Depression Scale Total 8 05/03/2021 The thought [...] encounter Miscellaneous Notes * Telephone Encounter - Margaret Camara RegSched Rep - 05/11/2025 12:34 PM EDT 3RD ATT LVM TO SCHEDULE APPT HUB TO RELAY * Telephone Encounter - Margaret Camara RegSched Rep - 05/08/2025 9:00 AM EDT LVM TO SCHEDULE APPT HUB TO RELAY * Telephone Encounter - Margaret Camara RegSched Rep - 05/06/2025 9:44 AM EDT LVM TO SCHEDULE APPT HUB TO RELAY documented in this encounter Plan of Treatment Not on file documented as of this encounter Visit Diagnoses Diagnosis Primary insomnia Persistent disorder of initiating or maintaining sleep documented in this encounter Care Teams Wharfmaster Relationship Specialty Start Date End Date Siena [place] [address] PCP - General Physician Upsetter 07/05/21 documented as of this encounter
[2025-08-22 16:33] VITALS: BP 146/78; PULSE 82; RESP 18; TEMP 36.9; O2SAT 98; BMI 38.7
--- NOTE | 2025-08-22 16:45 | ED_ITS ---
<Statement entered by Duyen Mayes DO - 08/23/25 00:43> I was consulted by the MISTI, and we discussed the complexity of problems being addressed. I approve the treatment and management plan for this patient's care in the emergency department, thus performing a substantial portion of the medical decision making. Duyen Mayes DO Discharge Plan Disposition Patient Disposition: Home, Self-Care Prescriptions Prescriptions: No Action ferrous sulfate [FeroSul] 325 mg (65 mg iron) tablet 325 mg PO DAILY Patient Comments: TAKE 1 TABLET BY MOUTH TWICE DAILY lubiprostone 8 mcg capsule PO Patient Comments: TAKE 1 CAPSULE BY MOUTH TWICE DAILY lubiprostone 24 mcg capsule 24 mcg PO BID Qty: 180 3RF lamotrigine 150 mg tablet 150 mg PO DAILY Patient Comments: TAKE 1 TABLET BY MOUTH EVERY NIGHT citalopram 40 mg tablet 40 mg PO DAILY Patient Comments: TAKE 1 TABLET BY MOUTH DAILY trazodone 50 mg tablet 50 - 100 mg PO HSP PRN (Reason: Insomnia) Patient Comments: TAKE 1 TO 2 TABLETS BY MOUTH AT NIGHT NEEDED FOR SLEEP bupropion HCl 75 mg Tablet 75 mg PO BID Rx Instructions: administer 6 hours apart omeprazole 20 mg capsule,delayed release(DR/EC) 20 mg PO DAILY Patient Comments: TAKE 1 CAPSULE BY MOUTH DAILY sucralfate 1 gram tablet 1 g PO QID PRN Patient Comments: TAKE 1 TABLET BY MOUTH FOUR TIMES DAILY Referrals Follow up/Referrals: Halie Cao APRN [Primary Care Provider, Medical] - See instructions Activity Restrictions/Add. Instructions Additional Instructions/Restrictions: Please drive directly to [facility] ED Clinical Impressions Clinical Impression: Acute left eye pain Print Language Print Language: Latvian Discharge ED Provider: Duyen Mayes General Adult HPI General Chief complaint: Eye Problems Stated complaint: left eye painful, red, swollen Time Seen by Provider: 08/22/25 16:45 Mode of Arrival: Ambulatory Source of Information: Patient Description of Symptoms (Recalled from ER Triage Doc. by RN): pt reports pain,re dness and irritation to left eye. started yesterday. hx of histo History of Present Illness HPI narrative: patient is a 44-year-old female PMHx chronic GERD, dysphagia, anxiety, depression who presents to the ED with complaints of left eye pain, painful EOM, blurry vision x 2 days. Patient states she did not get anything in her eye that she is aware of, states she is having significant pain in the left eye. Related Data Home Medications ?Medication ?Instructions ?Recorded ?Confirmed bupropion HCl 75 mg tablet 75 mg PO BID 06/14/2407/13 citalopram 40 mg tablet 40 mg PO DAILY 06/14/2406/26 lamotrigine 150 mg tablet 150 mg PO DAILY 06/14/24 omeprazole 20 mg capsule,delayed 20 mg PO DAILY 07/13/25 release trazodone 50 mg tablet 50 - 100 mg PO HSP PRN Insom aubree 06/14/24 07/13/25 ferrous sulfate 325 mg (65 mg 325 mg PO DAILY 07/13/25 07/13/25 iron) tablet (FeroSul) lubiprostone 8 mcg capsule mcg PO 07/13/25 07/13/25 sucralfate 1 gram tablet 1 g PO QID PRN 07/13/2506/26 Previous Rx's ?Medication ?Instructions ?Recorded lubiprostone 24 mcg capsule 24 mcg PO BID #180 caps Allergies Allergy/AdvReac Type Severity Reaction Status Date / Time No Known Allergies Allergy Verified 07/13/25 10:[address] [facility] Disclaimer: The information contained in this section may have been updated after the patient was seen, as this information can be updated by other users. 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 (Updated 08/22/25 @ 18:20 by Autumn López APRN) Anemia UTI (urinary tract infection) Depression Anxiety History of gastroesophageal reflux (GERD) Hypertension Surgical History History of section History of tubal ligation Social History Smoking Status: Never smoker alcohol intake: never current occupational status: employed Travel in the last 8 weeks?: None Have you lived/traveled outside [place] in past 30 days?: No Contact w/someone who lives/traveled outside US past 30 days?: No Exposure to someone with infectious disease in past 14 days?: No Do you have a fever (greater than 100.4 F or 38 C)?: No Have you tested positive for COVID-19?: No Exposed to someone with COVID-19 in past 14 days?: No Do you have a sore throat?: No Do you have a cough?: No Do you have any weakness?: No Do you have any diarrhea?: No Are you experiencing any unusual bleeding?: No Do you have any muscle aches/pain?: No Do you have any abdominal pain?: No Are you experiencing loss of taste or smell?: No ROS Obtained: Yes Systems reviewed as appropriate & no additional complaints except as documented Physical Exam General General appearance: alert Head Head exam: atraumatic Eye Eye exam: Present other (painful EOM with left eye, injected ) Neck Neck exam: Present full ROM Respiratory Respiratory exam: Present normal lung sounds bilaterally Cardiovascular Cardiovascular exam: Present regular rate Neurological Exam Neurological exam: Present alert and oriented X3 Medical Decision Making Medical Records Screening: Per USPSTF and CDC recommendations, given the prevalence of disease in our region, it is our hospital?s policy to screen for HIV and viral Hepatitis for all patients aged 18 and over and those with ongoing risk factors. Tomi Inquiry Pt receiving controlled substance: No Vital Signs: 08/22/25 16:33 08/22/25 17:50 Temperature 98.4 F Temperature Source Oral Pulse Rate 73 Pulse Rate [Left] 82 Respiratory Rate 18 Blood Pressure 162/80 H Blood Pressure [Left Arm] 146/78 H Blood Pressure Mean [Left Arm] 100 02 Sat by Pulse Oximetry 98 100 Oxygen Delivery Method Room Air Orders (Tests/Meds): ED MEDICATIONS Discontinued Medications Generic Name Dose Route Start Last Admin Trade Name Freq PRN Reason Stop Dose Admin Oxycodone HCl 5 mg 08/22/25 17:06 08/22/25 17:19 Oxycodone 5mg Immediate Release Tablet PO 08/22/25 17:07 5 mg ONCE ONE Administration Medical Decision Narrative: In summary, patient is a 44-year-old female PMHx chronic GERD, dysphagia, anxiety, depression who presents to the ED with complaints of left eye pain, painful EOM, blurry vision x 2 days. Patient states she did not get anything in her eye that she is aware of, states she is having significant pain in the left eye. Does not wear glasses or contacts. Denies fever, chills, headache, chest pain, shortness of breath. Upon initial evaluation patient is alert, oriented and cooperative. 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 Patient has left eye injection, erythema, painful EOM, blurry area over pupil visualized without staining. Concern for corneal ulcer. With tetracaine, patient did not have relief of pain. She continues to cry due to pain. Patient was administered oxycodone oral. Calling ophthalmology at for consult. Spoke with Dr. Herring who accepts patient as a transfer for concern of corneal ulcer. Patient has been driving to ED. Critical Care Critical Care Time Critical Care Time: No
--- NOTE | 2025-08-22 16:48 | PC.NURSE ---
20/100 to left eye. pt unable to complete with the r eye due to hx of histo
--- NOTE | 2025-08-22 16:51 | PC.NURSE ---
currently on phone with [facility] per Nurse Prac Deirdre for a pt consult with opthalmology for a cornial ulcer of left eye
[2025-08-22] MEDS: OXYCODONE 5MG IMMEDIATE RELEASE TABLET 5 MG PO (17:19)
--- NOTE | 2025-08-22 17:38 | PC.NURSE ---
call made to transfer center to check on status of call back from transfer center, they stated that they are 11 calls behind and will call back as soon as able.
[2025-08-22 17:50] VITALS: BP 162/80; PULSE 73; O2SAT 100
--- NOTE | 2025-08-22 18:16 | PC.NURSE ---
alia crockett on phone with MDs
--- NOTE | 2025-08-22 18:18 | PC.NURSE ---
balbir speaking with [facility]
--- NOTE | 2025-08-22 18:31 | PC.NURSE ---
report called to Anne-Marie @ [facility]
[2025-08-22 18:39] VITALS: BP 159/80; PULSE 81; RESP 18; TEMP 36.9; O2SAT 99
== END 2025-08-22 18:40 | disposition home or self-care (01) ==
PROVIDERS: Emergency Provider Student in an Organized Health Care Education/Training Program; PCP Nurse Practitioner Family
DX: H57.12 Ocular pain, left eye (principal); H53.8 Other visual disturbances
CPT/HCPCS: 99285